=== PATIENT | male | born 1965 | race African-American/Black ===

== ENCOUNTER 2018-06-24 17:38 | Emergency (ER) | payer BC ==
[2018-06-24] MEDS ORDERED: FENTANYL CITR 100 MCG/2 ML ONE (17:47)
[2018-06-24] MEDS ORDERED: HEPARIN/D5W 25,000 UNIT/500 ML BAG IV ONE (17:47)
[2018-06-24] MEDS ORDERED: HEPARIN 5000 UNIT/ML 1 ML VIAL ONE (17:47)
[2018-06-24] MEDS ORDERED: ONDANSETRON 4 MG/2 ML VIAL ONE (17:47)
[2018-06-24] MEDS ORDERED: CLOPIDOGREL 75 MG TABLET ONE (17:48)
[2018-06-24] MEDS ORDERED: NA CHLORIDE 0.9% 1,000 ML ONE (17:51)
[2018-06-24 17:58] LABS: Absolute Lymphocytes (CBC) 3.3 K/uL (0.7-4.9); Absolute Monocytes 0.8 K/uL (0.1-1.3); Absolute Neutrophil 4.9 K/uL (1.8-8.0); Basophils % 0.9 % (0-1.3); Eosinophils % 1.4 % (0-4.4); Hematocrit 37.6 % (39.6-49.0); Lymphocytes % 35.4 % (15.3-44.8); MCH 27.4 pg (27.0-35.0); MCV 79.5 fL (80-100); MPV 8.4 fL (7.6-11.3); Monocytes % 8.6 % (3.3-12.3); RBC Red Blood Cell Count 4.73 M/uL (4.33-5.43)
[2018-06-24] MEDS ORDERED: MORPHINE 4 MG/ML SYR ONE (17:58)
--- NOTE | 2018-06-24 17:59 | ER ---
Nurse's Notes [facility] Name: Gil Jerry Age: 52 yrs Sex: Male : 1965 Arrival Date: 06/24/2018 Time: 17:39 Bed 4 Private MD: Diagnosis: ST elevation (STEMI) myocardial infarction of inferior wall Presentation: 06/24 17:40 Presenting complaint: EMS states: pt c/o midsternal CP that started at 3 pm while iw working outside, pain radiates to back, 10/10, pt distressed, screaming, diaphoretic, EMS reports EKG shows PR. Transition of care: patient was not received from another setting of care. Onset of symptoms was June 24, 2018. Risk Assessment: Do you want to hurt yourself or someone else? Patient reports no desire to harm self or others. 17:40 Method Of Arrival: EMS: [facility] iw 17:40 Acuity: RAÚL 1 iw 17:45 Initial Sepsis Screen: Does the patient meet any 2 criteria? No. Patient's initial iw sepsis screen is negative. Does the patient have a suspected source of infection? No. Patient's initial sepsis screen is negative. Care prior to arrival: Medication(s) given: Normal saline infusion, 500 mL, Nitroglycerin, x 1, fentanyl 100 mcg IVP. 17:48 Care prior to arrival: Medication(s) given: ASA, 81 mg, x 4. iw Triage Assessment: 17:40 General: Appears distressed, uncomfortable, Behavior is cooperative, restless. Pain: sv Complains of pain in chest Pain currently is 10 out of 10 on a pain scale. Quality of pain is described as stabbing, Pain began 1500 Is continuous. EENT: No signs and/or symptoms were reported regarding the EENT system. Neuro: Level of Consciousness is awake, alert, obeys commands, Oriented to person, place, time, situation, Moves all extremities. Full function Speech is normal. Cardiovascular: Pulses are 3+ in right radial artery and left radial artery Rhythm is sinus rhythm. Respiratory: Airway is patent Respiratory effort is even, Respiratory pattern is symmetrical, tachypnea. Derm: Skin is diaphoretic, Skin is normal, Skin temperature is cool. Musculoskeletal: No signs and/or symptoms reported regarding the musculoskeletal system. Historical: - Allergies: 17:44 NKA; iw - Home Meds: 18:30 Glipizide Oral [Active]; benazepril-hydrochlorothiazide oral oral [Active]; sg - PMHx: 17:43 Diabetes - NIDDM; Hypertension; iw 17:44 Hyperlipidemia; iw - PSHx: 17:44 Heart stents; iw - Immunization history:: Adult Immunizations unknown. - Social history:: Smoking status: Patient/guardian denies using tobacco. - Ebola Screening: : Patient negative for fever greater than or equal to 101.5 degrees Fahrenheit, and additional compatible Ebola Virus Disease symptoms Patient denies exposure to infectious person Patient denies travel to an Ebola-affected area in the 21 days before illness onset No symptoms or risks identified at this time. Screenin:48 Abuse screen: Denies threats or abuse. Denies injuries from another. Nutritional iw screening: No deficits noted. Tuberculosis screening: No symptoms or risk factors identified. Fall Risk IV access (20 points). Assessment: 17:35 General: Appears distressed, uncomfortable, Behavior is agitated, anxious, crying. iw Pain: Complains of pain in mid-sternal area Pain radiates to back Pain currently is 10 out of 10 on a pain scale. Pain began 2 hours ago. Is continuous. Neuro: Level of Consciousness is awake, alert, obeys commands, Oriented to person, place, time, situation, Moves all extremities. Full function. Cardiovascular: Reports chest pain, Edema is absent. Rhythm is ST elevation. Respiratory: Respiratory effort is even, unlabored, Respiratory pattern is regular. GI: Abdomen is flat, non-distended. Derm: Skin is diaphoretic, Skin is normal. 18:09 Reassessment: awaiting [facility] at this time, pt reports no change in pain level at sg this time, pt remains hypertensive, Liseth HOOD notified of pt condition and VS at this time, will continue to monitor\E\ Patient states symptoms have not improved. 18:22 Reassessment: pt educated on the risk associated with Tnkase, a informed consent was sg signed by the patient and witnessed by Megan Miranda RN at bedside at this time Patient states symptoms have not improved. 18:35 Reassessment: [facility] at bedside for transport to receiving facility, pt reports sg pain level now a 9/10, verbal orders per Liseth HOOD to hold tnkase and administer 1 mg IVP Dilaudid. Vital Signs: 17:42 BP 179 / 115; Pulse 78; Resp 20 S; Temp 98.2; Pulse Ox 98% on R/A; Weight 83.91 kg; iw Height 5 ft. 8 in. (172.72 cm); Pain 10/10; 17:53 BP 214 / 121; Pulse 75; iw 18:08 BP 200 / 134; Pulse 80 MON; Resp 16; Pulse Ox 96% on R/A; Pain 10/10; sg 18:30 BP 189 / 109; Pulse 77 MON; sg 17:42 Body Mass Index 28.13 (83.91 kg, 172.72 cm) iw ED Course: 17:35 Maintain EMS IV. Dressing intact. Good blood return noted. Site clean \T\ dry. Gauge \T\ iw site: 18 RAC. 17:39 Patient arrived in ED. bd 17:40 Marquis Mckeon PA is PHCP. jr8 17:40 Lorne Baxter MD is Attending Physician. jr8 17:40 Inserted saline lock: 18 gauge in left antecubital area, using aseptic technique. Blood iw collected. IV inserted by SARAH BETH Carmen. 17:42 Triage completed. iw 17:47 Arm band placed on. iw 17:49 Nella Macedo RN is Primary Nurse. sv 17:49 No provider procedures requiring assistance completed. Oxygen administration via nasal iw cannula \T\ 2L/min. 17:49 Patient has correct armband on for positive identification. Placed in gown. Bed in low iw position. Call light in reach. Side rails up X2. monitor tech on. Pulse ox on. NIBP on. 18:01 XRAY Chest (1 view) In Process Unspecified. EDMS 18:09 EKG done, by registered vascular technologist (rvt). reviewed by Lorne Baxter MD. sm3 18:35 Patient transferred, IV remains in place. intact, No redness/swelling at site. sg Administered Medications: 17:49 Drug: Heparin (PR Drip) 12 units/kg/hr - (HEParin 65208 units, D5W 500 ml) sv {Co-Signature: sg (Raul Reveles RN).} Route: IV; Rate: calculated rate; Site: left forearm; 17:49 Drug: NS 0.9% 1000 ml Route: IV; Rate: 125 ml/hr; Site: left forearm; sv 17:49 Drug: Zofran 4 mg Route: IVP; Site: left forearm; sv 18:02 Follow up: Response: No adverse reaction sv 17:50 Drug: Heparin (PR-Bolus with thrombolytic) - HEParin 60 units/kg {Co-Signature: sv (Raul Reveles RN).} Route: IVP; Site: left forearm; 18:03 Follow up: Response: No adverse reaction sv 17:50 Drug: PlaVIX 300 mg Route: PO; sv 18:03 Follow up: Response: No adverse reaction sv 17:50 Drug: fentaNYL (PF) 75 mcg Route: IVP; Site: left forearm; sv 18:02 Follow up: Response: No adverse reaction sv 17:54 CANCELLED (Physician Discretion): Cardene 5 mg IV at calculated rate continuous; 5mg/hr jr8 18:00 Drug: morphine 5 mg Route: IVP; Site: right antecubital; sv 18:03 Follow up: Response: No adverse reaction sv 18:05 Follow up: Response: No adverse reaction; Pain is unchanged, physician notified sg 18:02 CANCELLED (Duplicate Order): morphine 4 mg IVP once sv 18:07 Drug: Dilaudid 1 mg Route: IVP; Site: right antecubital; sg 18:12 Follow up: Response: No adverse reaction; Pain is unchanged, physician notified sg 18:19 Drug: Dilaudid 1 mg Route: IVP; Site: right antecubital; sg 18:28 Follow up: Response: No adverse reaction; Pain is unchanged, physician notified sg 18:22 Not Given (Duplicate Order): Tenecteplase 45 mg IV at 1 bolus once sg 18:28 Drug: Labetalol 10 mg Route: IVP; Infused Over: 2 mins; Site: right antecubital; sg 19:10 Follow up: Response: No adverse reaction sv 18:33 Drug: Dilaudid 1 mg Route: IVP; Site: right antecubital; sg 19:10 Follow up: Response: No adverse reaction sv 18:34 Not Given (Other Intervention Used): Tenecteplase 45 mg IV at calculated rate once sg Outcome: 17:59 ER care complete, transfer ordered by . jrAbigail 18:35 Patient left the ED. sg 18:35 Transferred by helicopter to [facility] Transfer form completed. sg 18:35 Condition: stable 18:35 Instructed on the need for transfer, safety practices. Signatures: Dispatcher [employer] Loni Cloud Stephanie, RN RN sv Gay, Steven, RN RN sg Williams, Irene, RN RN Marquis Mckeon PA PA 8 Sherley Lozano 3 Raul Reveles RN sg Corrections: (The following items were deleted from the chart) 17:43 17:42 Resp 22bpm; Spontaneous; Pulse Ox 98% RA; Temp 98.2F; 83.91 kg; Pain 10/10; iw iw
--- NOTE | 2018-06-24 18:00 | EDPHYS ---
Physician Documentation [facility] Name: Gil Jerry Age: 52 yrs Sex: Male : 1965 Arrival Date: 06/24/2018 Time: 17:39 Bed 4 Private MD: ED Physician Lorne Baxter HPI: 06/24 17:42 This 52 yrs old Male presents to ER via EMS with complaints of Chest Pain. jr8 17:42 The patient or guardian reports chest pain that is located primarily in the substernal jr8 area. Onset: acutely, today. The pain radiates to back. Associated signs and symptoms: The patient has no apparent associated signs or symptoms. The chest pain is described as a heaviness, squeezing. Duration: The patient or guardian reports a single episode, that is still ongoing, and unchanged. Severity of pain: At its worst the pain was moderate in the emergency department the pain is unchanged. EMS care prior to arrival includes: aspirin, IV fluids, nitroglycerin, x 1, saline lock. The patient has not experienced similar symptoms in the past. The patient has not recently seen a physician. symptoms began at 3 pm today. Historical: - Allergies: 17:44 NKA; iw - Home Meds: 18:30 Glipizide Oral [Active]; benazepril-hydrochlorothiazide oral oral [Active]; sg - PMHx: 17:43 Diabetes - NIDDM; Hypertension; iw 17:44 Hyperlipidemia; iw - PSHx: 17:44 Heart stents; iw - Immunization history:: Adult Immunizations unknown. - Social history:: Smoking status: Patient/guardian denies using tobacco. - Ebola Screening: : Patient negative for fever greater than or equal to 101.5 degrees Fahrenheit, and additional compatible Ebola Virus Disease symptoms Patient denies exposure to infectious person Patient denies travel to an Ebola-affected area in the 21 days before illness onset No symptoms or risks identified at this time. ROS: 17:42 Eyes: Negative for injury, pain, redness, and discharge, ENT: Negative for injury, jr8 pain, and discharge, Neck: Negative for injury, pain, and swelling, Respiratory: Negative for shortness of breath, cough, wheezing, and pleuritic chest pain, Abdomen/GI: Negative for abdominal pain, nausea, vomiting, diarrhea, and constipation, Back: Negative for injury and pain, MS/Extremity: Negative for injury and deformity, Skin: Negative for injury, rash, and discoloration, Neuro: Negative for headache, weakness, numbness, tingling, and seizure. 17:42 Cardiovascular: Positive for chest pain, Negative for edema, orthopnea, palpitations, paroxysmal nocturnal dyspnea. Exam: 17:42 Eyes: Pupils equal round and reactive to light, extra-ocular motions intact. Lids and jr8 lashes normal. Conjunctiva and sclera are non-icteric and not injected. Cornea within normal limits. Periorbital areas with no swelling, redness, or edema. ENT: Nares patent. No nasal discharge, no septal abnormalities noted. Tympanic membranes are normal and external auditory canals are clear. Oropharynx with no redness, swelling, or masses, exudates, or evidence of obstruction, uvula midline. Mucous membranes moist. Neck: Trachea midline, no thyromegaly or masses palpated, and no cervical lymphadenopathy. Supple, full range of motion without nuchal rigidity, or vertebral point tenderness. No Meningismus. Respiratory: Lungs have equal breath sounds bilaterally, clear to auscultation and percussion. No rales, rhonchi or wheezes noted. No increased work of breathing, no retractions or nasal flaring. Abdomen/GI: Soft, non-tender, with normal bowel sounds. No distension or tympany. No guarding or rebound. No evidence of tenderness throughout. Back: No spinal tenderness. No costovertebral tenderness. Full range of motion. Skin: Warm, dry with normal turgor. Normal color with no rashes, no lesions, and no evidence of cellulitis. MS/ Extremity: Pulses equal, no cyanosis. Neurovascular intact. Full, normal range of motion. Neuro: Awake and alert, GCS 15, oriented to person, place, time, and situation. Cranial nerves II-XII grossly intact. Motor strength 5/5 in all extremities. Sensory grossly intact. Cerebellar exam normal. Normal gait. 17:42 Cardiovascular: Rate: normal, Rhythm: regular, Pulses: Pulses are 2+ in right radial artery and left radial artery. Heart sounds: normal, normal S1and S2, no S3 or S4, no murmur, no rub, no gallop, Edema: is not appreciated, JVD: is not appreciated. Vital Signs: 17:42 BP 179 / 115; Pulse 78; Resp 20 S; Temp 98.2; Pulse Ox 98% on R/A; Weight 83.91 kg; iw Height 5 ft. 8 in. (172.72 cm); Pain 10/10; 17:53 BP 214 / 121; Pulse 75; iw 18:08 BP 200 / 134; Pulse 80 MON; Resp 16; Pulse Ox 96% on R/A; Pain 10/10; sg 18:30 BP 189 / 109; Pulse 77 MON; sg 17:42 Body Mass Index 28.13 (83.91 kg, 172.72 cm) iw MDM: 17:40 Patient medically screened. [facility] 17:40 ED course: Pt with acute CA, ST elevation inferior and anterior leads, possible rn posterior CA or inferior/anterior/septal CA, consulted Dr. Chakraborty \T\ 1741, requests transfer due to research laboratory technician not available.. 17:42 ECG:. The patient was not given aspirin in the Emergency Department. Administered by [facility] EMS. 17:58 Data reviewed: vital signs, nurses notes, lab test result(s), EKG, radiologic studies, 8 plain films. 17:58 Counseling: I had a detailed discussion with the patient and/or guardian regarding: the [facility] historical points, exam findings, and any diagnostic results supporting the discharge/admit diagnosis, lab results, radiology results, the need to transfer to another facility, [facility] does not immediately have the required specialist. 18:22 ED course: Pt given 2 doses of fentanyl, morphine, dilaudid, without help, nitro from rn EMS did not help, still 10/10 pain, due to 2 hour of constant pain and STEMI, along with no relief of pain and delay to PCI, decision made to TNK patient. . 18:47 ED course: TNKase was not given. BP too elevated. Labetolol given to lower BP. Patient kulwant transferred via [facility] hemodynamically stable . 06/24 17:40 Order name: Basic Metabolic Panel; Complete Time: 18:47 [facility] 06/24 17:40 Order name: CBC with Diff; Complete Time: 17:59 [facility] 06/24 17:40 Order name: LFT's; Complete Time: 18:47 [facility] 06/24 17:40 Order name: Magnesium; Complete Time: 18:47 [facility] 06/24 17:40 Order name: NT PRO-BNP; Complete Time: 18:47 06/24 17:40 Order name: PT-INR; Complete Time: 18:22 06/24 17:40 Order name: Ptt, Activated; Complete Time: 18:22 06/24 17:40 Order name: Troponin (emerg Dept Use Only); Complete Time: 18:22 06/24 17:40 Order name: XRAY Chest (1 view); Complete Time: 18:22 06/24 17:40 Order name: EKG; Complete Time: 17:41 06/24 17:40 Order name: Cardiac monitoring; Complete Time: 17:51 06/24 17:40 Order name: EKG - Nurse/Tech; Complete Time: 17:51 06/24 17:40 Order name: IV Saline Lock; Complete Time: 17:51 06/24 17:40 Order name: Labs collected and sent; Complete Time: 17:51 06/24 17:40 Order name: O2 Per Protocol; Complete Time: 17:51 06/24 17:40 Order name: O2 Sat Monitoring; Complete Time: 17:52 06/24 17:40 Order name: Urine Dipstick-Ancillary (obtain specimen) jr8 EC:42 Rate is 50 beats/min. Rhythm is regular, Normal Sinus Rhythm. QRS [place] is Normal. [place] jr8 interval is normal at 190 msec. QRS interval is normal at 84 msec. QT interval is normal at 435 msec. No Q waves. T waves are Inverted in leads I, aVL, V3, V4, V5, V6. ST Segment is elevated in leads II, III, aVF, 2-5mm. Clinical impression: Inferior CA - acute and Right ventricular infarction (acute). Interpreted by me. Reviewed by me. Administered Medications: 17:49 Drug: Heparin (CA Drip) 12 units/kg/hr - (HEParin 24008 units, D5W 500 ml) sv {Co-Signature: sg (Raul Reveles RN).} Route: IV; Rate: calculated rate; Site: left forearm; 17:49 Drug: NS 0.9% 1000 ml Route: IV; Rate: 125 ml/hr; Site: left forearm; sv 17:49 Drug: Zofran 4 mg Route: IVP; Site: left forearm; sv 18:02 Follow up: Response: No adverse reaction sv 17:50 Drug: Heparin (CA-Bolus with thrombolytic) - HEParin 60 units/kg {Co-Signature: sg sv (Raul Reveles RN).} Route: IVP; Site: left forearm; 18:03 Follow up: Response: No adverse reaction sv 17:50 Drug: PlaVIX 300 mg Route: PO; sv 18:03 Follow up: Response: No adverse reaction sv 17:50 Drug: fentaNYL (PF) 75 mcg Route: IVP; Site: left forearm; sv 18:02 Follow up: Response: No adverse reaction sv 17:54 CANCELLED (Physician Discretion): Cardene 5 mg IV at calculated rate continuous; 5mg/hr jr8 18:00 Drug: morphine 5 mg Route: IVP; Site: right antecubital; sv 18:03 Follow up: Response: No adverse reaction sv 18:05 Follow up: Response: No adverse reaction; Pain is unchanged, physician notified sg 18:02 CANCELLED (Duplicate Order): morphine 4 mg IVP once sv 18:07 Drug: Dilaudid 1 mg Route: IVP; Site: right antecubital; sg 18:12 Follow up: Response: No adverse reaction; Pain is unchanged, physician notified sg 18:19 Drug: Dilaudid 1 mg Route: IVP; Site: right antecubital; sg 18:28 Follow up: Response: No adverse reaction; Pain is unchanged, physician notified sg 18:22 Not Given (Duplicate Order): Tenecteplase 45 mg IV at 1 bolus once sg 18:28 Drug: Labetalol 10 mg Route: IVP; Infused Over: 2 mins; Site: right antecubital; sg 19:10 Follow up: Response: No adverse reaction sv 18:33 Drug: Dilaudid 1 mg Route: IVP; Site: right antecubital; sg 19:10 Follow up: Response: No adverse reaction sv 18:34 Not Given (Other Intervention Used): Tenecteplase 45 mg IV at calculated rate once sg Disposition: 18:47 Co-signature as Attending Physician, Lorne Baxter MD., rn 06/25 10:10 Critical Care:. jr8 Disposition: 06/24/18 17:[address] [facility]. Diagnosis is ST elevation (STEMI) myocardial infarction of inferior wall. - Reason for transfer: Higher level of care. - Accepting physician is [facility]. - Condition is Fair. - Problem is new. - Symptoms are unchanged. Critical care time excluding procedures: 10:10 Critical care time: Bedside Care: 30 minutes, Consultation: 10 minutes, Family jr8 Intervention: 5 minutes. Total time: 45 minutes Signatures: Dispatcher [employer] Nella Watkins RN RN sv Gay, Steven, RN RN sg Williams, Irene, RN RN iw Nieto, Roman, MD MD rn Roszak, Josh, PA PA jr8 Raul Reveles RN sg Corrections: (The following items were deleted from the chart) 06/24 17:54 17:53 Cardene 5 mg IV at calculated rate continuous; 5mg/hr ordered. jr8 jr8 18:02 17:53 morphine 4 mg IVP once ordered. jr8 18:35 17:59 06/24/2018 17:[address] [facility]. Diagnosis is sg ST elevation (STEMI) myocardial infarction of inferior wall. Reason for transfer: Higher level of care. Accepting physician is [facility]. Condition is Fair. Problem is new. Symptoms are unchanged. jr8
[2018-06-24 18:06] LABS: Protime INR 0.91
[2018-06-24] MEDS ORDERED: HYDROMORPHONE HCL 1 MG/ML INJ ONE ×2 (18:08→18:20)
--- NOTE | 2018-06-24 18:19 | RAD REPORT ---
EXAM DESCRIPTION: RAD - Chest Single View - 06/24/2018 6:02 pm CLINICAL HISTORY: CHEST PAIN Chest pain. COMPARISON: None FINDINGS: Portable technique limits examination quality. The lungs are grossly clear. The heart is normal in size. No displaced fractures. IMPRESSION: No acute intrathoracic process suspected.
[2018-06-24] MEDS ORDERED: TENECTEPLASE 50 MG/10 ML VIAL IV ONE (18:23)
[2018-06-24 18:29] LABS: ALT/SGPT 32 U/L (12-78); AST/SGOT 13 U/L (15-37); Albumin 4.1 g/dL (3.4-5.0); Alkaline Phosphatase 76 U/L (45-117); BUN Blood Urea Nitrogen 19 mg/dL (7-18); Bicarbonate 24 mmol/L (21-32); Bilirubin Direct < 0.1 mg/dL (0-0.2); Bilirubin Total 0.4 mg/dL (0.2-1.0); Magnesium 2.3 mg/dL (1.8-2.4); NT PRO-BNP 12 pg/mL (<125); Potassium 3.7 mmol/L (3.5-5.1); Sodium Level 139 mmol/L (136-145)
[2018-06-24] MEDS ORDERED: LABETALOL HCL 100 MG/20 ML ONE (18:29)
[2018-06-24 18:33] LABS: Glucose Level 466 mg/dL (74-106)
--- NOTE | 2018-06-24 19:08 | EKG ---
Test Date: 2018-06-24 Test Time: 17:37:45 [employer]: NIKI MEASUREMENT RESULTS: Intervals: Rate: 80 NH: 190 QRSD: 84 QT: 378 QTc: 435 [place]: P: 38 NH: 190 QRS: 56 T: 137 INTERPRETIVE STATEMENTS: Normal sinus rhythm ST elevation, consider inferior injury or acute infarct ACUTE LA / STEMI Consider right ventricular involvement in acute inferior infarct Abnormal ECG No previous ECG available for comparison Electronically Signed On 06-24-18 19:07:28 CDT by Marco Chakraborty
== END 2018-06-24 18:35 | disposition short-term general hospital (02) ==
LOC: ER 17:38
DX: I21.19 ST elevation (STEMI) myocardial infarction involving other coronary artery of inferior wall (principal); I10 Essential (primary) hypertension; E11.9 Type 2 diabetes mellitus without complications; E78.5 Hyperlipidemia, unspecified; Z95.818 Presence of other cardiac implants and grafts
CPT/HCPCS: 36415; 71045; 80048; 80076; 83735; 83880; 84484; 85025; 85610; 85730; 93005; 99285; J1170; J1644; J2405; J3010; J3101; J7030